=== PATIENT | female | born 1950 | race Caucasian/White ===

== ENCOUNTER 2018-12-13 13:05 | Day surgery (SDC) | payer OTHER, MEDICAID ==
[2018-12-13] MEDS ORDERED: FENTAnyl 50 MCG/ML VIAL (16:30)
[2018-12-13] MEDS ORDERED: MIDAZOLAM 1 MG/ML 2 ML INJ (16:30)
[2018-12-13] MEDS: BUPIVACAINE 0.5% (SDV) 30 ML INJ (16:53)
[2018-12-13] MEDS: POLYMYXIN/BACITRACIN 1L IRRIG (16:53)
[2018-12-13] MEDS ORDERED: CEFAZOLIN 1 GM INJ (17:08)
[2018-12-13] MEDS ORDERED: ONDANSETRON 4 MG INJ (17:08)
[2018-12-13] MEDS ORDERED: LIDOCAINE 2% (SDV) 5 ML INJ (17:08)
[2018-12-13] MEDS ORDERED: PROPOFOL 20 ML (17:08)
[2018-12-13] MEDS ORDERED: ETOMIDATE 20 MG INJ (17:08)
[2018-12-13] MEDS ORDERED: FENTAnyl 50 MCG/ML VIAL IV (17:30)
[2018-12-13] MEDS ORDERED: MEPERIDINE 25 MG INJ IV (17:30)
[2018-12-13] MEDS ORDERED: HYDROmorphONE 1 MG/5 ML IV SYRINGE IV ×2 (17:30)
[2018-12-13] MEDS ORDERED: ONDANSETRON 4 MG INJ IV (17:30)
[2018-12-13] MEDS ORDERED: METOCLOPRAMIDE 10 MG INJ IV (17:30)
[2018-12-13] MEDS ORDERED: DIPHENHYDRAMINE 50 MG INJ IV (17:30)
[2018-12-13] MEDS ORDERED: KETOROLAC 30 MG INJ IV (17:30)
== END 2018-12-13 18:40 | disposition home or self-care (01) ==
LOC: SDS 13:05
DX: M19.041 Primary osteoarthritis, right hand (principal); M25.841 Other specified joint disorders, right hand; E78.5 Hyperlipidemia, unspecified; Z90.710 Acquired absence of both cervix and uterus; M72.2 Plantar fascial fibromatosis
CPT/HCPCS: 26080; 82962